=== PATIENT | female | born 1975 | race Caucasian/White ===

== ENCOUNTER 2018-01-12 09:57 | Day surgery (SDC) | payer OTHER ==
[~2018-01-12] VITALS: Ht 175.3 cm; Wt 135.5 kg
[~2018-01-12 09:57] MED LIST: DICLOFENAC SOD100 MG PO; VITAMIN D31000 UNIT PO
[2018-01-12 10:37] VITALS: BP 126/70
[2018-01-12 16:54] VITALS: BP 146/87
[2018-01-12 17:27] VITALS: BP 135/73
== END 2018-01-12 17:55 | disposition home or self-care (01) ==
LOC: SDC 09:57
DX: S86.011A Strain of right Achilles tendon, initial encounter (principal); M76.61 Achilles tendinitis, right leg; M77.31 Calcaneal spur, right foot; M67.01 Short Achilles tendon (acquired), right ankle; I49.9 Cardiac arrhythmia, unspecified
CPT/HCPCS: 73650; 76000; C1713; J0131; J0330; J0690; J1100; J1885; J2250; J2795; J3010; S0020